=== PATIENT | male | born 1970 | race Caucasian/White ===

== ENCOUNTER 2019-08-11 16:17 | Emergency (ER) | payer MEDICAID, OTHER ==
[~2019-08-11] VITALS: Ht 180.3 cm; Wt 104.3 kg
[2019-08-11 16:25] VITALS: BP 130/70
[2019-08-11] MEDS ORDERED: NACL 0.9% 1,000 ML IV ONE (16:35)
[2019-08-11] MEDS ORDERED: LEVOFLOXACIN 750 MG/D5W PREMIX 150 ML IV ONE (16:35)
--- NOTE | 2019-08-11 16:52 | NUR ---
PT BIB C/O LEFT LOWER LEG PAIN AND SWELLING; PT WAS SEEN AT [facility] TUESDAY FOR A BUG BITE; PT STATES HE WAS TREATED WITH IV ABX AND A PRESCRIPTION FOR ABX AND PT STATES HE HAS BEEN COMPLIANT BUT THE SWELLING AND REDNESS HAS SPREAD. PT REPORTS PAIN AT 2/10 IN LT LEG THAT INCREASES W/ WALKING. VSS. ER MD TO SEE PT. HX DENIES
[2019-08-11 16:57] LABS: BASOPHILS % (AUTO) 0.2 % (0.0-2.0); EOSINOPHILS # (AUTO) 0.2 K/uL (0-0.4); EOSINOPHILS % (AUTO) 2.2 % (0.0-4.0); HEMATOCRIT 37.1 % (36-52); HEMOGLOBIN 12.8 g/dL (12.0-18.0); LYMPHOCYTES # (AUTO) 1.7 K/uL (2.0-11.5); LYMPHOCYTES % (AUTO) 14.6 % (20.5-51.1); MEAN CORPUSCULAR HEMOGLOBIN 30 pg (27-31); MEAN CORPUSCULAR HGB CONC 34 g/dL (33-37); MEAN CORPUSCULAR VOLUME 88.2 fL (80-94); MONOCYTES % (AUTO) 8.4 % (1.7-9.3); NEUTROPHILS # (AUTO) 8.5 K/uL (1.8-7.7); NEUTROPHILS % (AUTO) 74.6 % (42.2-75.2); PLATELET COUNT (AUTO) 238 K/uL (140-450); RED BLOOD CELL COUNT(AUTO) 4.21 MIL/uL (4.20-6.10); RED CELL DISTRIBUTION WIDTH 13.2 % (11.6-13.7); WHITE BLOOD COUNT (AUTO) 11.4 K/uL (4.8-10.8)
[2019-08-11] MEDS ORDERED: ACET-8386 PO (17:03)
[2019-08-11] MEDS ORDERED: CLIN300C2 PO (17:03)
[2019-08-11] MEDS ORDERED: HYDR12.51 PO (17:03)
[2019-08-11 17:46] LABS: ALBUMIN 3.1 g/dL (3.4-5.0); ANION GAP 15.4 (8-16); CARBON DIOXIDE 26.3 mmol/L (21-32); CREATININE 0.9 mg/dL (0.7-1.3); TOTAL BILIRUBIN 0.6 mg/dL (0.0-1.0)
[2019-08-11 17:49] LABS: POTASSIUM 2.7 mmol/L (3.5-5.1)
[2019-08-11] MEDS ORDERED: POTASSIUM CHLORIDE 10 MEQ TABER PO ONE (17:50)
[2019-08-11 18:26] VITALS: BP 120/70
--- NOTE | 2019-08-11 18:26 | NUR ---
Patient discharged with v/s stable. Written and verbal after care instructions given and explained. Patient alert, oriented and verbalized understanding of instructions. Ambulatory with steady gait. All questions addressed prior to discharge. ID band removed. Patient advised to follow up with PMD. Rx of keflex and bactrim given. Patient educated on indication of medication including possible reaction and side effects. Opportunity to ask questions provided and answered.
--- NOTE | 2019-08-13 12:24 | NUR ---
Late entry. Confirmed with RN that Levaquin IVPB completed at 1820
== END 2019-08-11 18:26 | disposition home or self-care (01) ==
LOC: MED 16:17
DX: L03.116 Cellulitis of left lower limb (principal); E87.6 Hypokalemia; I10 Essential (primary) hypertension; Z79.899 Other long term (current) drug therapy
CPT/HCPCS: 36415; 80053; 83605; 85025; 87040; 87086; 96365; 96366; 99283; J1956; J7030

== ENCOUNTER 2019-08-14 08:47 | Emergency (ER) | payer MEDICAID ==
[~2019-08-14] VITALS: Ht 180.3 cm; Wt 101.6 kg
[~2019-08-14 08:47] MED LIST: ACET-8386 PO; CLIN300C2 PO; HYDR12.51 PO
[2019-08-14 08:53] VITALS: BP 123/56
--- NOTE | 2019-08-14 08:56 | NUR ---
PATIENT AMBULATED TO BED 4 AT THIS TIME.
--- NOTE | 2019-08-14 09:00 | NUR ---
C/O REDNESS/SWELLING/PAIN 07/07 X8 DAYS TO LLE AFTER BEING BITTEN BY UNKNOWN BUG, PT ALSO REPORTS INTERMITTENT NAUSEA. PT STATES HE WAS SEEN AT [facility] 08/11 AND GIVEN IV ABX (LEVAQUIN) AND WAS SENT HOME WITH KEFLEX & BACTRIM. PT STATES IT HASNT GOTTEN WORSE, BUT IT HASN'T GOTTEN BETTER AND HE IS HAVING ALOT OF PAIN. +2 PEDAL PULSE TO L FOOT, VISIBLE REDNESS/SWELLING NOTED TO LLE. BED IN LOW POSITION, SIDE RAIL UP X1.
--- NOTE | 2019-08-14 09:01 | NUR ---
DR. MILLER AT BEDSIDE EVALUATING PATIENT.
[2019-08-14 09:20] VITALS: BP 123/56
--- NOTE | 2019-08-14 09:27 | NUR ---
Patient discharged with v/s stable. Written and verbal after care instructions given and explained. Patient verbalized understanding. Ambulatory with steady gait. All questions addressed prior to discharge. Advised to follow up with PMD.
== END 2019-08-14 09:20 | disposition home or self-care (01) ==
LOC: MED 08:47
DX: L03.116 Cellulitis of left lower limb (principal); Z79.899 Other long term (current) drug therapy; Z79.1 Long term (current) use of non-steroidal anti-inflammatories (NSAID)
CPT/HCPCS: 99281